=== PATIENT | female | born 1980 | race African-American/Black ===

== ENCOUNTER 2020-06-28 10:06 | Emergency (ER) | payer OTHER ==
[~2020-06-28] VITALS: Ht 162.6 cm; Wt 84.8 kg
[2020-06-28 10:14] VITALS: Ht 162.6 cm; Wt 84.8 kg
[2020-06-28 11:05] LABS: CALCIUM 8.9 mg/dL (8.5-10.1); CARBON DIOXIDE 24.4 mmol/L (21-32); CHLORIDE SERUM 102 mmol/L (98-107); CREATININE SERUM 0.8 mg/dL (0.6-1.0); GFR1 > 60 mL/min; GLUCOSE SERUM 99 mg/dL (74-106); POTASSIUM SERUM 3.8 mmol/L (3.5-5.1); SODIUM SERUM 137 mmol/L (136-145)
[2020-06-28 11:16] LABS: BASOPHIL % 1.1 % (0-2); PLATELET COUNT 276 x10^3mcL (130-400); RED CELL DISTRIBUTION WIDTH 12.5 % (11.5-14.5)
[2020-06-28 12:46] VITALS: BP 90/45
== END 2020-06-28 12:46 | disposition home or self-care (01) ==
LOC: ED 10:06
PROVIDERS: Emergency Medicine
DX: R51 Headache (principal); R11.0 Nausea; Z88.1 Allergy status to other antibiotic agents; Z98.890 Other specified postprocedural states
CPT/HCPCS: J0780; J7030; Q0163